=== PATIENT | male | born 1930 | race Caucasian/White ===

== ENCOUNTER 2019-01-29 23:04 | Inpatient (IN) | payer MEDICARE, BC ==
[~2019-01-29] VITALS: Ht 175.3 cm; Wt 63.0 kg
[~2019-01-29 23:04] MED LIST: ASPI-785; DONE5TAB33; MEGE400O28; NO HOME MEDS
[2019-01-29] MEDS ORDERED: ONDANSETRON HCL 4MG/2ML INJ IV STA (23:23)
[2019-01-29] MEDS ORDERED: SODIUM CHLORIDE 0.9% 1,000 ML IV ONE (23:23)
[2019-01-30] VITALS (9 sets, daily range): BP systolic 107–161; BP diastolic 59–106
[2019-01-30 00:04] LABS: BG BASE EXCESS -3.7 mmol/L (-2.0-2.0); BG CARBOXYHEMOGLOBIN 0.3 % (0.5-1.5); BG DEOXYHEMOGLOBIN 6.7 % (0.0-5.0); BG FRACTION INSPIRED OXYGEN 21; BG METHEMOGLOBIN 0.6 % (0.0-1.5); BG OXYGEN SATURATION 93.2 % (92.0-98.5); BG OXYHEMOGLOBIN 92.4 % (94.0-97.0); BG PCO2 32.8 mmHg (35.0-45.0); BG PH 7.402 (7.350-7.450); BG PO2 70.1 mmHg (75.0-100.0); BG SAMPLE SITE LEFT FEMORAL; BG TOTAL HEMOGLOBIN 15.8 g/dL (12.0-18.0); BG VENT MODE ROOM AIR
[2019-01-30 00:12] LABS: CHLORIDE 114 mEq/L (98-107); HEMATOCRIT. 51.4 % (42.0-52.0); HEMOGLOBIN. 16.3 g/dL (14.0-18.0); MEAN CORPUSCULAR HEMOGLOBIN 25.2 pg (28.0-32.0); MEAN CORPUSCULAR VOLUME 79.4 fL (80.0-94.0); MEAN PLATELET VOLUME 10.6 fl (7.4-10.4); PLATELET 138 x1000/uL (130-400); RED BLOOD CELL COUNT 6.47 mill/uL (4.7-6.1); RED CELL DISTRIBUTION WIDTH 15.1 % (11.6-14.6)
[2019-01-30 00:13] LABS: INR 1.2; PROTHROMBIN TIME 12.1 sec (9.6-11.0)
[2019-01-30 00:16] LABS: ETHANOL BLOOD < 10 mg/dL
[2019-01-30 00:33] LABS: CREATINE KINASE 2097 IU/L (39-308)
[2019-01-30 01:02] LABS: PLATELET ESTIMATE NORMAL
[2019-01-30 01:11] LABS: CLARITY URINE CLOUDY (CLEAR); COLOR URINE YELLOW (YELLOW); KETONES URINE TRACE (NEGATIVE); LEUKOCYTE ESTERASE URINE NEGATIVE (NEGATIVE); NITRITE URINE NEGATIVE (NEGATIVE); OCCULT BLOOD URINE 2+ (NEGATIVE); PROTEIN URINE TRACE (NEGATIVE); SPECIFIC GRAVITY URINE 1.019 (1.005-1.030)
[2019-01-30 01:33] LABS: *AMPHETAMINES SCREEN URINE NEGATIVE (NEGATIVE)
[2019-01-30 01:34] LABS: *BARBITURATES SCREEN URINE NEGATIVE (NEGATIVE); *BENZODIAZEPINES SCREEN URINE NEGATIVE (NEGATIVE); *COCAINE SCREEN URINE NEGATIVE (NEGATIVE)
[2019-01-30 01:35] LABS: CANNABINOID URINE SCREEN NEGATIVE (NEGATIVE); METHADONE URINE SCREEN NEGATIVE (NEGATIVE); OPIATES URINE SCREEN NEGATIVE (NEGATIVE); PHENCYCLIDINE URINE SCREEN NEGATIVE (NEGATIVE)
[2019-01-30] MEDS ORDERED: ACETAMINOPHEN 325MG TABLET PO PRN (06:00)
[2019-01-30] MEDS ORDERED: CLONIDINE 0.1MG TABLET PO PRN (06:00)
[2019-01-30] MEDS ORDERED: ONDANSETRON HCL 4MG/2ML INJ IV PRN (06:00)
[2019-01-30] MEDS ORDERED: IPRATROPIUM/ALBUTEROL 0.5-3(2.5)MG/3ML NEB INH PRN (06:00)
[2019-01-30] MEDS ORDERED: MAGNESIUM/ALUMINUM HYDROXIDE/SIMETHICONE 30ML UDC PO PRN (06:00)
[2019-01-30] MEDS ORDERED: DIPHENHYDRAMINE 50MG/ML VIAL IV PRN (06:00)
[2019-01-30] MEDS ORDERED: LORAZEPAM 2MG/ML CPJ IV PRN (06:00)
[2019-01-30] MEDS ORDERED: DOCUSATE SODIUM 100MG CAPSULE PO PRN (06:00)
[2019-01-30] MEDS ORDERED: HYDROCODONE/ACETAMINOPHEN 5/325MG TABLET PO PRN (06:00)
[2019-01-30] MEDS ORDERED: NA PHOS,M-B/NA PHOS,DI-BA ENEMA 118ML PR PRN (06:00)
[2019-01-30] MEDS ORDERED: GUAIFENESIN 200MG/10ML SUGAR FREE UDC PO PRN (06:00)
[2019-01-30] MEDS ORDERED: HYDROMORPHONE HCL/PF 2MG/ML CPJ IV PRN (06:00)
[2019-01-30] MEDS ORDERED: ENOXAPARIN 40MG/0.4ML SYR SUBCUT SCH (09:00)
[2019-01-30] MEDS: ASPIRIN 81MG EC TABLET PO SCH (09:00)
[2019-01-30] MEDS: SODIUM CHLORIDE 0.45% 1,000 ML IV SCH ×2 (09:24→23:42)
[2019-01-30] MEDS: PIPERACILLIN/TAZ 3.375G PREMIX 50 ML IV SCH ×3 (09:24→23:42)
[2019-01-30] MEDS ORDERED: DIGOXIN 500MCG/2ML AMP IV SCH (12:15)
[2019-01-30] MEDS ORDERED: DILTIAZEM HCL 5MG/ML 5ML VIAL IV SCH (12:45)
[2019-01-30] MEDS ORDERED: DILTIAZEM HCL 5MG/ML 5ML VIAL IV PRN (13:00)
[2019-01-30] MEDS ORDERED: THIAMINE HCL 100 MG in SODIUM CHLORIDE 0.9% 49 ML IV ONE (20:00)
[2019-01-30] MEDS ORDERED: THIAMINE HCL 100 MG in SODIUM CHLORIDE 0.9% 49 ML IV NR (21:30)
[2019-01-31] VITALS (12 sets, daily range): BP systolic 111–153; BP diastolic 68–104
[2019-01-31] MEDS: HYDRALAZINE 20MG/ML VIAL IV PRN (00:57)
[2019-01-31] MEDS: PIPERACILLIN/TAZ 3.375G PREMIX 50 ML IV SCH ×3 (06:12→22:12)
[2019-01-31 06:41] LABS: BASOPHILS % 0.2 % (0.0-2.0); EOSINOPHILS % 0.2 % (0.0-5.0); HEMATOCRIT. 47.3 % (42.0-52.0); LYMPHOCYTES % 7.8 % (20.0-50.0); MEAN CORPUSCULAR HEMOGLOBIN 25.1 pg (28.0-32.0); MEAN PLATELET VOLUME 10.4 fl (7.4-10.4); MONOCYTES % 8.3 % (2.0-8.0); NEUTROPHILS % 83.5 % (40.0-76.0); PLATELET 135 x1000/uL (130-400); RED BLOOD CELL COUNT 5.99 mill/uL (4.7-6.1); RED CELL DISTRIBUTION WIDTH 15.2 % (11.6-14.6)
[2019-01-31 06:58] LABS: CHLORIDE 118 mEq/L (98-107)
[2019-01-31 07:19] LABS: LDL CHOLESTEROL 93 mg/dL (5-100); T4 FREE 1.68 ng/dL (0.76-1.46)
[2019-01-31 07:21] LABS: HDL CHOLESTEROL 49 mg/dL (40-59)
[2019-01-31] MEDS: ASPIRIN 81MG EC TABLET PO SCH (08:39)
[2019-01-31] MEDS: ENOXAPARIN 30MG/0.3ML SYR SUBCUT SCH (08:39)
[2019-01-31] MEDS: SODIUM CHLORIDE 0.45% 1,000 ML IV SCH ×2 (14:09→23:51)
[2019-01-31 15:09] LABS: ANTI-NUCLEAR ANTIBODIES DIRECT Negative (Negative)
[2019-02-01] VITALS (12 sets, daily range): BP systolic 119–152; BP diastolic 69–99
[2019-02-01] MEDS: PIPERACILLIN/TAZ 3.375G PREMIX 50 ML IV SCH ×3 (05:46→22:16)
[2019-02-01 06:58] LABS: BASOPHILS % 0.4 % (0.0-2.0); EOSINOPHILS % 1.1 % (0.0-5.0); HEMATOCRIT. 43.2 % (42.0-52.0); HEMOGLOBIN. 13.6 g/dL (14.0-18.0); LYMPHOCYTES % 9.1 % (20.0-50.0); MEAN CORPUSCULAR HEMOGLOBIN 25.2 pg (28.0-32.0); MEAN CORPUSCULAR VOLUME 79.8 fL (80.0-94.0); MEAN PLATELET VOLUME 10.3 fl (7.4-10.4); MONOCYTES % 8.2 % (2.0-8.0); NEUTROPHILS % 81.2 % (40.0-76.0); PLATELET 134 x1000/uL (130-400); RED BLOOD CELL COUNT 5.41 mill/uL (4.7-6.1); RED CELL DISTRIBUTION WIDTH 15.1 % (11.6-14.6)
[2019-02-01 07:22] LABS: COMPLEMENT C3 154 mg/dL (82-167)
[2019-02-01 07:39] LABS: PHOSPHORUS 3.6 mg/dL (2.5-4.9)
[2019-02-01] MEDS ORDERED: POTASSIUM CHLORIDE INJ 40 MEQ in DEXT 5% WATER 250 ML IV NR (09:00)
[2019-02-01] MEDS: ASPIRIN 81MG EC TABLET PO SCH (10:00)
[2019-02-01] MEDS: DEXTROSE 5% WATER 1,000 ML IV SCH ×2 (10:00→21:19)
[2019-02-01] MEDS: ENOXAPARIN 30MG/0.3ML SYR SUBCUT SCH (10:01)
[2019-02-01] MEDS: DILTIAZEM HCL 30MG TABLET PO SCH ×2 (14:54→22:16)
[2019-02-02] VITALS (12 sets, daily range): BP systolic 124–159; BP diastolic 69–99
[2019-02-02] MEDS: PIPERACILLIN/TAZ 3.375G PREMIX 50 ML IV SCH ×3 (05:06→21:10)
[2019-02-02] MEDS: DILTIAZEM HCL 30MG TABLET PO SCH ×3 (05:07→21:10)
[2019-02-02 06:06] LABS: BASOPHILS % 0.4 % (0.0-2.0); HEMATOCRIT. 44.8 % (42.0-52.0); LYMPHOCYTES % 10.9 % (20.0-50.0); MEAN CORPUSCULAR HEMOGLOBIN 25.1 pg (28.0-32.0); MEAN CORPUSCULAR VOLUME 80.4 fL (80.0-94.0); MEAN PLATELET VOLUME 10.4 fl (7.4-10.4); MONOCYTES % 7.7 % (2.0-8.0); PLATELET 131 x1000/uL (130-400); RED BLOOD CELL COUNT 5.58 mill/uL (4.7-6.1); RED CELL DISTRIBUTION WIDTH 15.3 % (11.6-14.6)
[2019-02-02 06:43] LABS: CHLORIDE 117 mEq/L (98-107)
[2019-02-02] MEDS: ASPIRIN 81MG EC TABLET PO SCH (10:00)
[2019-02-02] MEDS: ENOXAPARIN 40MG/0.4ML SYR SUBCUT SCH (10:01)
[2019-02-02] MEDS: DEXTROSE 5% WATER 1,000 ML IV SCH (10:55)
[2019-02-03] VITALS (12 sets, daily range): BP systolic 111–163; BP diastolic 73–97
[2019-02-03] MEDS: DEXTROSE 5% WATER 1,000 ML IV SCH (00:42)
[2019-02-03 06:48] LABS: CHLORIDE 111 mEq/L (98-107)
[2019-02-03 06:53] LABS: BASOPHILS % 0.2 % (0.0-2.0); EOSINOPHILS % 1.1 % (0.0-5.0); HEMATOCRIT. 40.2 % (42.0-52.0); LYMPHOCYTES % 9.1 % (20.0-50.0); MEAN CORPUSCULAR HEMOGLOBIN 25.6 pg (28.0-32.0); MEAN CORPUSCULAR VOLUME 79.1 fL (80.0-94.0); MEAN PLATELET VOLUME 10.1 fl (7.4-10.4); MONOCYTES % 6.6 % (2.0-8.0); PLATELET 149 x1000/uL (130-400); RED BLOOD CELL COUNT 5.09 mill/uL (4.7-6.1); RED CELL DISTRIBUTION WIDTH 14.5 % (11.6-14.6)
[2019-02-03] MEDS: DILTIAZEM HCL 30MG TABLET PO SCH ×3 (07:12→21:48)
[2019-02-03] MEDS: PIPERACILLIN/TAZ 3.375G PREMIX 50 ML IV SCH ×3 (08:10→21:48)
[2019-02-03] MEDS: ASPIRIN 81MG EC TABLET PO SCH (08:12)
[2019-02-03] MEDS: ENOXAPARIN 40MG/0.4ML SYR SUBCUT SCH (08:12)
[2019-02-03] MEDS ORDERED: POTASSIUM CHLORIDE 20MEQ/PACKET PO NR (08:46)
[2019-02-04] VITALS (14 sets, daily range): BP systolic 121–154; BP diastolic 79–99
[2019-02-04] MEDS: PIPERACILLIN/TAZ 3.375G PREMIX 50 ML IV SCH ×3 (06:25→22:03)
[2019-02-04] MEDS: DILTIAZEM HCL 30MG TABLET PO SCH ×3 (06:25→22:03)
[2019-02-04 07:19] LABS: BASOPHILS % 0.3 % (0.0-2.0); EOSINOPHILS % 1.6 % (0.0-5.0); HEMATOCRIT. 40.6 % (42.0-52.0); LYMPHOCYTES % 13.6 % (20.0-50.0); MEAN CORPUSCULAR HEMOGLOBIN 25.1 pg (28.0-32.0); MEAN CORPUSCULAR VOLUME 78.6 fL (80.0-94.0); MEAN PLATELET VOLUME 10.4 fl (7.4-10.4); MONOCYTES % 8.9 % (2.0-8.0); NEUTROPHILS % 75.6 % (40.0-76.0); PLATELET 171 x1000/uL (130-400); RED BLOOD CELL COUNT 5.17 mill/uL (4.7-6.1); RED CELL DISTRIBUTION WIDTH 15.2 % (11.6-14.6)
[2019-02-04 08:00] LABS: CHLORIDE 113 mEq/L (98-107)
[2019-02-04 08:06] LABS: PHOSPHORUS 3.1 mg/dL (2.5-4.9)
[2019-02-04] MEDS: ENOXAPARIN 40MG/0.4ML SYR SUBCUT SCH (08:30)
[2019-02-04] MEDS: ASPIRIN 81MG EC TABLET PO SCH (08:30)
[2019-02-05] VITALS (8 sets, daily range): BP systolic 100–154; BP diastolic 51–102
[2019-02-05] MEDS: DILTIAZEM HCL 30MG TABLET PO SCH (05:24)
[2019-02-05] MEDS: PIPERACILLIN/TAZ 3.375G PREMIX 50 ML IV SCH ×2 (05:24→14:13)
[2019-02-05 06:23] LABS: HEMATOCRIT 40.9 % (42.0-52.0); HEMOGLOBIN 12.9 g/dL (14.0-18.0); MEAN CORPUSCULAR HEMOGLOBIN 25.3 pg (28.0-32.0); MEAN CORPUSCULAR VOLUME 80.1 fL (80.0-94.0); PLATELET 187 x1000/uL (130-400); RED BLOOD CELL COUNT 5.11 mill/uL (4.7-6.1)
[2019-02-05 07:15] LABS: CHLORIDE 109 mEq/L (98-107)
[2019-02-05] MEDS: HYDRALAZINE 20MG/ML VIAL IV PRN (08:04)
[2019-02-05] MEDS: ASPIRIN 81MG EC TABLET PO SCH (09:15)
[2019-02-05] MEDS: ENOXAPARIN 40MG/0.4ML SYR SUBCUT SCH (09:16)
[2019-02-05] MEDS ORDERED: DILTIAZEM HCL 60MG TABLET PO SCH (14:00)
== END 2019-02-05 16:55 | DRG 871 ==
LOC: ER 23:59 → 5EST 01-30 02:53 → EDBEDREQTM 01-30 02:56 → EDBEDREQ 01-30 02:56 → EDBEDREQDT 01-30 02:56 → ENRESERV 01-30 04:32
PROVIDERS: ADMIT Ophthalmology; ATTEND Ophthalmology
PROC: 4A00X4Z Measurement of Central Nervous Electrical Activity, External Approach (ICD-10-PCS; principal; 2019-02-03)
DX: A41.9 Sepsis, unspecified organism (principal); N17.0 Acute kidney failure with tubular necrosis; G93.41 Metabolic encephalopathy; M62.82 Rhabdomyolysis; N39.0 Urinary tract infection, site not specified; E87.0 Hyperosmolality and hypernatremia; E87.2 Acidosis; I13.0 Hypertensive heart and chronic kidney disease with heart failure and stage 1 through stage 4 chronic kidney disease, or unspecified chronic kidney disease; E44.0 Moderate protein-calorie malnutrition; E72.20 Disorder of urea cycle metabolism, unspecified; I47.1 Supraventricular tachycardia; E86.0 Dehydration; F02.80 Dementia in other diseases classified elsewhere, unspecified severity, without behavioral disturbance, psychotic disturbance, mood disturbance, and anxiety; I50.9 Heart failure, unspecified; E87.8 Other disorders of electrolyte and fluid balance, not elsewhere classified; D64.9 Anemia, unspecified; E86.1 Hypovolemia; G30.9 Alzheimer's disease, unspecified; N18.9 Chronic kidney disease, unspecified; N40.0 Benign prostatic hyperplasia without lower urinary tract symptoms; R62.7 Adult failure to thrive; Z86.73 Personal history of transient ischemic attack (TIA), and cerebral infarction without residual deficits; Z79.82 Long term (current) use of aspirin; Z79.899 Other long term (current) drug therapy; Z68.20 Body mass index [BMI] 20.0-20.9, adult
CPT/HCPCS: 36415; 36600; 71045; 76770; 80048; 80061; 80076; 80305; 80307; 80320; 80329; 82140; 82248; 82375; 82550; 82805; 83605; 83735; 84100; 84439; 84443; 84484; 85027; 86038; 86160; 93005; 93306; 93970; 96361; 96374; 97162; 97530; 99291; J0360; J1160; J1650; J2405; J2543; J3411; J3480; J3490; J7030; J7050; J7060; J7070; A4315; G0480

== ENCOUNTER 2020-04-15 06:07 | Inpatient (IN) | payer MEDICARE, BC ==
[~2020-04-15] VITALS: Ht 167.6 cm; Wt 58.5 kg
[~2020-04-15 06:07] MED LIST changes: -MEGE400O28; +MEGE400O5
[2020-04-15] MEDS ORDERED: SODIUM CHLORIDE 0.9% 1,000 ML IV ONE (06:40)
[2020-04-15 07:27] LABS: BASOPHILS % 0.7 % (0.0-2.0); EOSINOPHILS % 1.7 % (0.0-5.0); HEMATOCRIT. 38.7 % (42.0-52.0); HEMOGLOBIN. 12.7 g/dL (14.0-18.0); MEAN CORPUSCULAR HEMOGLOBIN 26.3 pg (28.0-32.0); MEAN CORPUSCULAR VOLUME 80.1 fL (80.0-94.0); MEAN PLATELET VOLUME 8.9 fl (7.4-10.4); MONOCYTES % 5.4 % (2.0-8.0); NEUTROPHILS % 79.2 % (40.0-76.0); PLATELET 230 x1000/uL (130-400); RED BLOOD CELL COUNT 4.82 mill/uL (4.7-6.1); RED CELL DISTRIBUTION WIDTH 15.3 % (11.6-14.6)
[2020-04-15 07:33] LABS: CHLORIDE 105 mEq/L (98-107)
[2020-04-15 07:42] LABS: D-DIMER 4.18 mg/L FEU (<0.50); INR 1.1; PROTHROMBIN TIME 11.9 sec (9.6-11.0)
[2020-04-15 07:43] LABS: CREATINE KINASE 316 IU/L (39-308)
[2020-04-15] MEDS ORDERED: PIPERACILLIN/TAZ 3.375G PREMIX 50 ML IV ONE (08:00)
[2020-04-15] MEDS ORDERED: VANCOMYCIN 1 G PREMIX 200 ML IV ONE (08:00)
[2020-04-15] MEDS ORDERED: ACETAMINOPHEN 325MG TABLET PO PRN (10:30)
[2020-04-15] MEDS ORDERED: ONDANSETRON HCL 4MG/2ML INJ IV PRN (10:30)
[2020-04-15] MEDS: DEXT 5%/0.45% NACL 1000ML 1,000 ML IV SCH (10:37)
[2020-04-15 10:55] LABS: BG DEOXYHEMOGLOBIN 2.2 % (0.0-5.0); BG FRACTION INSPIRED OXYGEN 21; BG HCO3 ACT 21.1 mmol/L (22.0-26.0); BG METHEMOGLOBIN 0.1 % (0.0-1.5); BG OXYGEN SATURATION 97.8 % (92.0-98.5); BG OXYHEMOGLOBIN 97.7 % (94.0-97.0); BG PO2 95.7 mmHg (75.0-100.0); BG SAMPLE SITE LEFT RADIAL; BG VENT MODE ROOM AIR
[2020-04-15] MEDS: ENOXAPARIN 40MG/0.4ML SYR SUBCUT SCH (11:00)
[2020-04-15] MEDS ORDERED: CEFTRIAXONE 1 G PREMIX 50 ML IV SCH (11:00)
[2020-04-15] MEDS ORDERED: HYDRALAZINE 20MG/ML VIAL IV PRN (15:15)
[2020-04-15] MEDS: PANTOPRAZOLE SODIUM 40 MG/VIAL IV SCH (21:00)
[2020-04-15] MEDS ORDERED: DILT30TA3 PO (23:47)
[2020-04-15] MEDS ORDERED: DIGO125T80 MT (23:47)
[2020-04-16] VITALS (7 sets, daily range): BP systolic 95–143; BP diastolic 56–82
[2020-04-16] MEDS: DEXT 5%/0.45% NACL 1000ML 1,000 ML IV SCH ×2 (01:51→13:10)
[2020-04-16 07:58] LABS: CLARITY URINE CLOUDY (CLEAR); COLOR URINE YELLOW (YELLOW); KETONES URINE 1+ (NEGATIVE); LEUKOCYTE ESTERASE URINE NEGATIVE (NEGATIVE); NITRITE URINE NEGATIVE (NEGATIVE); OCCULT BLOOD URINE NEGATIVE (NEGATIVE); PH URINE 5.5 (4.5-8.0); PROTEIN URINE TRACE (NEGATIVE); SPECIFIC GRAVITY URINE 1.017 (1.005-1.030)
[2020-04-16] MEDS: ENOXAPARIN 40MG/0.4ML SYR SUBCUT SCH (09:00)
[2020-04-16 09:01] LABS: HEMATOCRIT. 38.6 % (42.0-52.0); HEMOGLOBIN. 12.7 g/dL (14.0-18.0); MEAN CORPUSCULAR HEMOGLOBIN 26.4 pg (28.0-32.0); MEAN CORPUSCULAR VOLUME 79.9 fL (80.0-94.0); MEAN PLATELET VOLUME 9.2 fl (7.4-10.4); PLATELET 225 x1000/uL (130-400); RED BLOOD CELL COUNT 4.83 mill/uL (4.7-6.1); RED CELL DISTRIBUTION WIDTH 15.3 % (11.6-14.6)
[2020-04-16 09:14] LABS: CHLORIDE 105 mEq/L (98-107)
[2020-04-16] MEDS ORDERED: DILTIAZEM HCL 5MG/ML 5ML VIAL IV NR (09:30)
[2020-04-16] MEDS: ASPIRIN 81MG TABLET PO SCH (11:00)
[2020-04-16 11:02] LABS: PLATELET ESTIMATE NORMAL
[2020-04-16] MEDS: CEFTRIAXONE 1 G PREMIX 50 ML IV SCH (13:35)
[2020-04-16] MEDS ORDERED: MIDAZOLAM HCL 5 MG/5 ML VIAL IV PRN (13:52)
[2020-04-16] MEDS ORDERED: FENTANYL CITRATE/PF 50MCG/ML 2ML VIAL IV PRN (13:55)
[2020-04-16] MEDS ORDERED: MIDAZOLAM HCL 5 MG/5 ML VIAL ONE (13:56)
[2020-04-16] MEDS ORDERED: FENTANYL CITRATE/PF 50MCG/ML 2ML VIAL ONE (13:56)
[2020-04-16 14:09] LABS: T4 FREE 1.69 ng/dL (0.76-1.46)
[2020-04-16] MEDS: VANCOMYCIN 1 G PREMIX 200 ML IV SCH (17:06)
[2020-04-16] MEDS: METOPROLOL TARTRATE 50MG TABLET PO SCH (21:22)
[2020-04-16] MEDS: PANTOPRAZOLE SODIUM 40 MG/VIAL IV SCH (22:32)
[2020-04-17] VITALS: BP 144/77
[2020-04-17 04:48] VITALS: BP 136/72
[2020-04-17] MEDS: DEXT 5%/0.45% NACL 1000ML 1,000 ML IV SCH ×2 (06:11→16:51)
[2020-04-17] MEDS: METOCLOPRAMIDE HCL 10MG/2ML VIAL IV SCH ×3 (06:12→18:53)
[2020-04-17 07:19] LABS: CHLORIDE 104 mEq/L (98-107)
[2020-04-17 07:34] LABS: HEMATOCRIT. 39.9 % (42.0-52.0); HEMOGLOBIN. 12.9 g/dL (14.0-18.0); MEAN CORPUSCULAR HEMOGLOBIN 25.9 pg (28.0-32.0); MEAN CORPUSCULAR VOLUME 79.9 fL (80.0-94.0); MEAN PLATELET VOLUME 9.6 fl (7.4-10.4); PLATELET 222 x1000/uL (130-400); RED BLOOD CELL COUNT 4.99 mill/uL (4.7-6.1); RED CELL DISTRIBUTION WIDTH 15.5 % (11.6-14.6)
[2020-04-17 08:20] VITALS: BP 148/98
[2020-04-17] MEDS: SODIUM HYPOCHLORITE 0.125% 473ML SOLUTION TOP SCH (08:49)
[2020-04-17] MEDS: ASPIRIN 81MG TABLET PO SCH (08:52)
[2020-04-17] MEDS: METOPROLOL TARTRATE 50MG TABLET PO SCH (08:52)
[2020-04-17] MEDS: ENOXAPARIN 40MG/0.4ML SYR SUBCUT SCH (08:52)
[2020-04-17] MEDS: VANCOMYCIN 1 G PREMIX 200 ML IV SCH (09:39)
[2020-04-17 12:00] VITALS: BP 120/65
[2020-04-17] MEDS: CEFTRIAXONE 1 G PREMIX 50 ML IV SCH (12:57)
[2020-04-17 16:00] VITALS: BP 117/73
[2020-04-17 20:00] VITALS: BP 132/77
[2020-04-17 20:50] LABS: PLATELET ESTIMATE NORMAL
[2020-04-17] MEDS: CARVEDILOL 3.125 MG TABLET PO SCH (21:04)
[2020-04-17] MEDS: PANTOPRAZOLE SODIUM 40 MG/VIAL IV SCH (21:04)
[2020-04-18] VITALS: BP 142/92
[2020-04-18] MEDS: METOCLOPRAMIDE HCL 10MG/2ML VIAL IV SCH ×4 (00:32→16:53)
[2020-04-18 04:00] VITALS: BP 153/84
[2020-04-18] MEDS: VANCOMYCIN 1 G PREMIX 200 ML IV SCH ×2 (04:53→22:05)
[2020-04-18] MEDS: DEXT 5%/0.45% NACL 1000ML 1,000 ML IV SCH (04:55)
[2020-04-18 06:16] LABS: CHLORIDE 105 mEq/L (98-107)
[2020-04-18 06:18] LABS: HEMATOCRIT. 40.4 % (42.0-52.0); HEMOGLOBIN. 13.2 g/dL (14.0-18.0); MEAN CORPUSCULAR HEMOGLOBIN 26.2 pg (28.0-32.0); MEAN CORPUSCULAR VOLUME 79.8 fL (80.0-94.0); MEAN PLATELET VOLUME 9.3 fl (7.4-10.4); PLATELET 227 x1000/uL (130-400); RED BLOOD CELL COUNT 5.06 mill/uL (4.7-6.1); RED CELL DISTRIBUTION WIDTH 15.6 % (11.6-14.6)
[2020-04-18 08:00] VITALS: BP 127/83
[2020-04-18] MEDS: ASPIRIN 81MG TABLET PO SCH (09:18)
[2020-04-18] MEDS: PANTOPRAZOLE SODIUM 40 MG/VIAL IV SCH ×2 (09:18→22:03)
[2020-04-18] MEDS: CARVEDILOL 3.125 MG TABLET PO SCH ×2 (09:23→22:05)
[2020-04-18] MEDS: ENOXAPARIN 40MG/0.4ML SYR SUBCUT SCH (09:24)
[2020-04-18] MEDS: SODIUM HYPOCHLORITE 0.125% 473ML SOLUTION TOP SCH (09:24)
[2020-04-18] MEDS ORDERED: LACTULOSE 20G/30ML UDC PO PRN (12:30)
[2020-04-18] MEDS: DOCUSATE SODIUM 250MG CAPSULE PO SCH (12:40)
[2020-04-18] MEDS: CEFTRIAXONE 1 G PREMIX 50 ML IV SCH (12:40)
[2020-04-18 14:27] LABS: PLATELET ESTIMATE NORMAL
[2020-04-18 18:45] VITALS: BP 132/90
[2020-04-18] MEDS: DILTIAZEM HCL 5MG/ML 5ML VIAL IV PRN (18:56)
[2020-04-18 20:00] VITALS: BP 137/83
[2020-04-18] MEDS ORDERED: DILTIAZEM HCL 5MG/ML 5ML VIAL IV NR (22:00)
[2020-04-19] VITALS: BP 127/84
[2020-04-19] MEDS: METOCLOPRAMIDE HCL 10MG/2ML VIAL IV SCH ×3 (02:05→12:42)
[2020-04-19 04:00] VITALS: BP 136/89
[2020-04-19 05:48] LABS: BASOPHILS % 0.5 % (0.0-2.0); EOSINOPHILS % 1.1 % (0.0-5.0); HEMATOCRIT. 36.8 % (42.0-52.0); LYMPHOCYTES % 7.9 % (20.0-50.0); MEAN CORPUSCULAR HEMOGLOBIN 25.7 pg (28.0-32.0); MEAN CORPUSCULAR VOLUME 78.7 fL (80.0-94.0); MEAN PLATELET VOLUME 9.3 fl (7.4-10.4); MONOCYTES % 5.4 % (2.0-8.0); NEUTROPHILS % 85.1 % (40.0-76.0); PLATELET 245 x1000/uL (130-400); RED BLOOD CELL COUNT 4.68 mill/uL (4.7-6.1); RED CELL DISTRIBUTION WIDTH 15.4 % (11.6-14.6)
[2020-04-19 05:53] LABS: CHLORIDE 104 mEq/L (98-107)
[2020-04-19 08:01] VITALS: BP 127/82
[2020-04-19] MEDS: PANTOPRAZOLE SODIUM 40 MG/VIAL IV SCH ×2 (09:44→20:14)
[2020-04-19] MEDS: DOCUSATE SODIUM 250MG CAPSULE PO SCH (09:44)
[2020-04-19] MEDS: CARVEDILOL 3.125 MG TABLET PO SCH ×2 (09:44→20:14)
[2020-04-19] MEDS: ASPIRIN 81MG TABLET PO SCH (09:44)
[2020-04-19] MEDS: ENOXAPARIN 40MG/0.4ML SYR SUBCUT SCH (09:45)
[2020-04-19 12:20] VITALS: BP 135/85
[2020-04-19] MEDS: CEFTRIAXONE 1 G PREMIX 50 ML IV SCH (12:42)
[2020-04-19] MEDS: VANCOMYCIN 1 G PREMIX 200 ML IV SCH (16:56)
[2020-04-19] MEDS: SODIUM HYPOCHLORITE 0.125% 473ML SOLUTION TOP SCH (16:56)
[2020-04-19 17:21] VITALS: BP 121/80
[2020-04-19] MEDS: DILTIAZEM HCL 5MG/ML 5ML VIAL IV PRN (20:02)
[2020-04-20] VITALS: BP 118/67
[2020-04-20 04:00] VITALS: BP 151/103
[2020-04-20] MEDS: VANCOMYCIN 1 G PREMIX 200 ML IV SCH (04:42)
[2020-04-20 05:57] LABS: BASOPHILS % 0.5 % (0.0-2.0); EOSINOPHILS % 2.1 % (0.0-5.0); HEMATOCRIT. 33.3 % (42.0-52.0); LYMPHOCYTES % 7.4 % (20.0-50.0); MEAN CORPUSCULAR HEMOGLOBIN 25.9 pg (28.0-32.0); MEAN CORPUSCULAR VOLUME 78.6 fL (80.0-94.0); MEAN PLATELET VOLUME 9.5 fl (7.4-10.4); PLATELET 200 x1000/uL (130-400); RED BLOOD CELL COUNT 4.24 mill/uL (4.7-6.1); RED CELL DISTRIBUTION WIDTH 15.6 % (11.6-14.6)
[2020-04-20 07:17] LABS: CHLORIDE 105 mEq/L (98-107)
[2020-04-20 08:00] VITALS: BP 121/69
[2020-04-20] MEDS: PANTOPRAZOLE SODIUM 40 MG/VIAL IV SCH ×2 (08:50→22:34)
[2020-04-20] MEDS: CARVEDILOL 3.125 MG TABLET PO SCH ×2 (08:50→21:00)
[2020-04-20] MEDS: DOCUSATE SODIUM 250MG CAPSULE PO SCH (08:50)
[2020-04-20] MEDS: ASPIRIN 81MG TABLET PO SCH (08:50)
[2020-04-20] MEDS: ENOXAPARIN 40MG/0.4ML SYR SUBCUT SCH (08:51)
[2020-04-20] MEDS: SODIUM HYPOCHLORITE 0.125% 473ML SOLUTION TOP SCH (08:51)
[2020-04-20 12:00] VITALS: BP_SYST 127; BP_SYST 72; BP_DIAS 72
[2020-04-20] MEDS: CEFTRIAXONE 1 G PREMIX 50 ML IV SCH (12:09)
[2020-04-20] MEDS: DILTIAZEM HCL 5MG/ML 5ML VIAL IV PRN (14:28)
[2020-04-20 16:00] VITALS: BP 128/72
[2020-04-20] MEDS: DILTIAZEM HCL 60MG TABLET PO SCH ×2 (18:19→23:30)
[2020-04-20 20:00] VITALS: BP 104/58
[2020-04-20] MEDS ORDERED: VANCOMYCIN 1 G PREMIX 200 ML IV SCH (20:00)
[2020-04-21] VITALS: BP 101/57
[2020-04-21 04:00] VITALS: BP 132/77
[2020-04-21] MEDS: DILTIAZEM HCL 60MG TABLET PO SCH ×2 (05:49→14:00)
[2020-04-21 06:47] LABS: CHLORIDE 103 mEq/L (98-107)
[2020-04-21 06:49] LABS: BASOPHILS % 0.9 % (0.0-2.0); EOSINOPHILS % 2.6 % (0.0-5.0); HEMATOCRIT. 31.4 % (42.0-52.0); HEMOGLOBIN. 10.4 g/dL (14.0-18.0); LYMPHOCYTES % 10.9 % (20.0-50.0); MEAN CORPUSCULAR HEMOGLOBIN 25.8 pg (28.0-32.0); MEAN CORPUSCULAR VOLUME 77.8 fL (80.0-94.0); MEAN PLATELET VOLUME 9.2 fl (7.4-10.4); NEUTROPHILS % 77.6 % (40.0-76.0); PLATELET 213 x1000/uL (130-400); RED BLOOD CELL COUNT 4.04 mill/uL (4.7-6.1)
[2020-04-21 06:55] LABS: VANCOMYCIN TROUGH 29.7 ug/mL (5.0-10.0)
[2020-04-21] MEDS ORDERED: DEXTROSE 50% WATER 50ML SYRINGE IV PRN (07:45)
[2020-04-21 08:00] VITALS: BP 117/70
[2020-04-21] MEDS: DOCUSATE SODIUM 250MG CAPSULE PO SCH (08:55)
[2020-04-21] MEDS: CARVEDILOL 3.125 MG TABLET PO SCH (08:56)
[2020-04-21] MEDS: SODIUM HYPOCHLORITE 0.125% 473ML SOLUTION TOP SCH (08:57)
[2020-04-21] MEDS: ENOXAPARIN 40MG/0.4ML SYR SUBCUT SCH (08:57)
[2020-04-21] MEDS: ASPIRIN 81MG TABLET PO SCH (08:57)
[2020-04-21] MEDS ORDERED: FAMOTIDINE 20MG/2ML VIAL IV SCH (09:00)
[2020-04-21 10:31] VITALS: BP 117/70
[2020-04-21 12:00] VITALS: BP 121/75
[2020-04-21] MEDS ORDERED: BLOOD SUGAR DIAGNOSTIC STRIP TEST SCH (12:20)
== END 2020-04-21 16:51 | disposition home health service (06) | DRG 70 ==
LOC: ER 06:21 → EDBEDREQTM 07:57 → EDBEDREQSVC 07:57 → EDBEDREQ 07:57 → 6WST 10:02 → EDBEDREQTM 10:06 → EDBEDREQ 10:06 → ENRESERV 21:21 → CANRESERV 21:21 → ENRESERV 21:48
PROVIDERS: ADMIT Internal Medicine; ATTEND Internal Medicine
PROC: 0DH63UZ Insertion of Feeding Device into Stomach, Percutaneous Approach (ICD-10-PCS; principal; 2020-04-16)
PROC: 0DB68ZX Excision of Stomach, Via Natural or Artificial Opening Endoscopic, Diagnostic (ICD-10-PCS; 2020-04-16)
DX: G93.41 Metabolic encephalopathy (principal); L89.154 Pressure ulcer of sacral region, stage 4; L89.513 Pressure ulcer of right ankle, stage 3; E43 Unspecified severe protein-calorie malnutrition; I47.1 Supraventricular tachycardia; I42.9 Cardiomyopathy, unspecified; M62.82 Rhabdomyolysis; I13.0 Hypertensive heart and chronic kidney disease with heart failure and stage 1 through stage 4 chronic kidney disease, or unspecified chronic kidney disease; E87.2 Acidosis; R62.7 Adult failure to thrive; D64.9 Anemia, unspecified; N18.9 Chronic kidney disease, unspecified; L89.159 Pressure ulcer of sacral region, unspecified stage; I50.9 Heart failure, unspecified; G30.9 Alzheimer's disease, unspecified; L89.120 Pressure ulcer of left upper back, unstageable; K29.70 Gastritis, unspecified, without bleeding; R13.10 Dysphagia, unspecified; L89.019 Pressure ulcer of right elbow, unspecified stage; L89.219 Pressure ulcer of right hip, unspecified stage; L89.319 Pressure ulcer of right buttock, unspecified stage; I34.0 Nonrheumatic mitral (valve) insufficiency; F01.50 Vascular dementia, unspecified severity, without behavioral disturbance, psychotic disturbance, mood disturbance, and anxiety; Z86.73 Personal history of transient ischemic attack (TIA), and cerebral infarction without residual deficits; Z79.82 Long term (current) use of aspirin; Z79.899 Other long term (current) drug therapy; Z03.818 Encounter for observation for suspected exposure to other biological agents ruled out; Z68.20 Body mass index [BMI] 20.0-20.9, adult
CPT/HCPCS: 36415; 36600; 71045; 80048; 80053; 80202; 81003; 82375; 82550; 82728; 82805; 82962; 83036; 83605; 83615; 83735; 84134; 84145; 84439; 84443; 84480; 84484; 85025; 85379; 85384; 86140; 88305; 88312; 88313; 93005; 93306; 99291; C9113; J0360; J0696; J1650; J2250; J2543; J2765; J3010; J3370; J3490; J7030; C9803-CS; U0003-CS